=== PATIENT | female | born 1995 | race African-American/Black ===

== ENCOUNTER 2021-07-01 13:51 | Emergency (ER) | payer OTHER ==
[2021-07-01 14:21] VITALS: BP 119/77
--- NOTE | 2021-07-01 14:51 | ED Physician Documentation ---
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 Her tested positive within the last 48 hours. She is been sick for about 5 days with classic symptoms including sore throat, runny nose, sneezing, body aches, cough but no shortness of breath. She has been vaccinated against COVID. Review of Systems Constitutional: reports: Chills, Myalgias, Fatigue Nose: reports: Rhinorrhea / runny nose Throat: reports: Sore throat Respiratory: reports: Cough. denies: Dyspnea PD PAST MEDICAL HISTORY - Allergies Allergies/Adverse Reactions: Allergies Allergy/AdvReac Type Severity Reaction Status Date / Time No Known Drug Allergies Allergy Verified 07/01/21 14:21 PD ED PE NORMAL - Vitals Vital signs reviewed: Yes - General General: Alert and oriented X 3, No acute distress - HEENT HEENT: Pharynx benign - Neck Neck: Supple, no meningeal sign, No bony TTP - Cardiac Cardiac: RRR, No murmur - Respiratory Respiratory: No respiratory distress, Clear bilaterally - Abdomen Abdomen: Non tender - Neuro Neuro: Alert and oriented X 3, Normal speech Results - Vitals Vitals: Vital Signs - 24 hr 07/01/21 14:15 Temperature 36.1 C L Heart Rate 62 Respiratory 16 Rate Blood Pressure 119/77 O2 Saturation 100 Oxygen O2 Source Room air PD MEDICAL DECISION MAKING - ED course ED course: Prescription medications were offered but declined. Seems like a classic viral syndrome, likely COVID omicron given the current outbreak. Advised on need for quarantine. Departure - Departure Disposition: 01 Home, Self Care Condition: Good Record reviewed to determine appropriate education?: Yes Instructions: ED Viral Syndrome Comments: You have a Covid test pending. You need to self quarantine until the result is done and negative. Do not leave your house. Do not get near anybody. The results should be done in 48 to 72 hours. We will call with a positive result, the fastest way to get a negative result for confirmation though is to go to the hospital website at [email or web address], click on the my [facility] tab and sign up for the patient portal. If any friends or family get sick and would like to have a Covid test done, but do not have signs or symptoms that would necessitate being hospitalized, there are multiple local options for Covid testing. [facility] keeps an updated list of testing and vaccination options at: [email or web address]. Forms: Activity restrictions
== END 2021-07-01 14:55 | disposition home or self-care (01) ==
LOC: ED 13:51
DX: U07.1 COVID-19 (principal)
CPT/HCPCS: 99282; 99283

== ENCOUNTER 2022-12-13 08:37 | Emergency (ER) | payer OTHER ==
[2022-12-13 08:57] VITALS: BP 126/94
--- NOTE | 2022-12-13 09:41 | ED Physician Documentation ---
PD HPI ABD PAIN - Stated complaint Stated Complaint: BACK PX - Chief complaint Chief Complaint: General - History obtained from History obtained from: Patient - History of Present Illness Timing - onset: How many days ago (has had firm stools and feeling some constipated with pushing for small BMs for few days, with some rectal pain. This morning was pushing for BM and felt some increased pain. Palpated rectal area and felt lump of tissue that was tender. Small streak of red blood with wiping. Pain/tender persisted.) Timing - details: Gradual onset, Still present (much wrose this morning.) Quality: Aching, Pain (rectal area) Worsened by: Palpation, Other (sitting) Associated symptoms: Constipation. No: Nausea, Vomiting, Diarrhea Similar symptoms before: Has not had sx before Review of Systems Constitutional: denies: Fever, Chills GI: reports: Constipation, Bloody / black stool (small red amount with wiping today). denies: Abdominal Pain, Nausea, Vomiting, Diarrhea : denies: Dysuria, Frequency PD PAST MEDICAL HISTORY - Past Medical History Cardiovascular: None Respiratory: None Endocrine/Autoimmune: None GI: None - Past Surgical History Past Surgical History: No - Present Medications Home Medications: Ambulatory Orders Medication Instructions Recorded Confirmed Docusate Sodium 100Mg Capsule 100 mg PO DAILY #20 cap 12/13/22 [Colace 100Mg Capsule] Hydrocortisone Supp [Anusol-Hc] 25 mg RC DAILY #5 supp 12/13/22 - Allergies Allergies/Adverse Reactions: Allergies Allergy/AdvReac Type Severity Reaction Status Date / Time No Known Drug Allergies Allergy Verified 07/01/21 14:21 - Social History Does the pt smoke?: No Smoking Status: Never smoker Does the pt drink ETOH?: Yes Does the pt have substance abuse?: No - Immunizations Immunizations are current?: Yes PD ED PE NORMAL - Vitals Vital signs reviewed: Yes - General General: Alert and oriented X 3, Well developed/nourished - Abdomen Abdomen: Normal bowel sounds, Soft, Non tender - Female Female : Deferred - Rectal Rectal: Other (with Elvira nurse present: there is external hemorrhoid about size of ryan renteria, that is soft but very tender and is pink (not appearing thrombosed). No rectal tissue seen. No perirectal fullness nor tenderness. Digital exam not done. ) Results - Vitals Vitals: Vital Signs - 24 hr 12/13/22 08:49 Temperature 36.5 C Heart Rate 67 Respiratory 18 Rate Blood Pressure 126/94 H O2 Saturation 100 Oxygen O2 Source Room air PD Medical Decision Making - ED course Complexity details: considered differential (has had some firm stools and pushing for BM. Has external hemorrhoid on exam, did not do digital exam but presume some internal as well based on symptoms. No signs of prolapse and not appearing thrombosed. ), d/w patient Departure - Departure Disposition: 01 Home, Self Care Clinical Impression: Hemorrhoids Qualifiers: Hemorrhoid type: unspecified Qualified Code(s): K64.9 - Unspecified hemorrhoids Condition: Stable Record reviewed to determine appropriate education?: Yes Instructions: ED Hemorrhoids Follow-Up: FRANCY Lane [Provider Group] Prescriptions: Hydrocortisone Supp [Anusol-Hc] 25 mg RC DAILY #5 supp Docusate Sodium 100Mg Capsule [Colace 100Mg Capsule] 100 mg PO DAILY #20 cap Comments: You do have some hemorrhoids visible externally. They do not look clotted or infected. There can possibly be some hemorrhoids extend to the just inside the rectal muscles. I would suggest using a anti-inflammatory/steroid suppository daily for the next 3 to 5 days until this is better. You will also want to have soft stool so there is less pressure and irritation with bowel movements over the next week or so. Use docusate stool softener daily for this. For pain initially, you can use Tylenol and/or ibuprofen. I would anticipate this improving over the next couple of days and not needing medication per se for pain. Recheck if not improved well over the next few days and return if increasing pain or you notice increasing size and firmness of the hemorrhoid. Some mild bleeding with bowel movements would not be unusual and is not necessarily indicative of worse problem. I do not see any sign of prolapse or eversion of your rectal mucosal tissue. It just looks like the hemorrhoid. Discharge Date/Time: 12/13/22 10:12
[2022-12-13] MEDS ORDERED: IBUPROFEN 600 MG TABLET PO STA (10:00)
== END 2022-12-13 10:12 | disposition home or self-care (01) ==
LOC: ED 08:37
DX: K64.9 Unspecified hemorrhoids (principal)
CPT/HCPCS: 99282; 99283; A9270